=== PATIENT | female | born 1950 | race Caucasian/White ===

== ENCOUNTER 2019-06-08 17:25 | Emergency (ER) | payer MEDICARE, OTHER ==
[~2019-06-08] VITALS: Ht 167.6 cm; Wt 70.8 kg
[~2019-06-08 17:25] MED LIST: ALLOPURINOL 10100 M1 PO; AMBIEN 5 MG TABL5 M1 PO; EFFEXOR 5050 MG/1 T1 PO; GABAPENTIN 100100 MG PO; KEFLEX500 MG PO; MAXZIDE-25 MG1 EACH PO; PREDNISONE 10 M10 M1 PO; PREMARIN0.3 MG PO; PRILOSEC 20 MG20 MG PO; VITAMIN D1000 UNI1 PO; ZOCOR20 MG PO
[2019-06-08 17:58] LABS: URINE BILIRUBIN NEGATIVE (Negative); URINE BLOOD NEGATIVE (Negative); URINE CLARITY CLEAR; URINE COLOR YELLOW; URINE GLUCOSE-RANDOM NEGATIVE (Negative); URINE KETONES NEGATIVE (Negative); URINE LEUKOCYTES-REFLEX NEGATIVE (Negative); URINE NITRITE-REFLEX NEGATIVE (Negative); URINE PROTEIN 1+ (Negative); URINE SPECIFIC GRAVITY >= 1.030 (1.005-1.030); URINE UROBILINOGEN 0.2 E.U./dl (0.2-1.0)
[2019-06-08 18:33] LABS: ABSOLUTE BASOPHILS 0.1 thou/uL (0.0-0.2); ABSOLUTE EOSINOPHILS 0.1 thou/uL (0.0-0.7); ABSOLUTE LYMPHOCYTES 1.7 thou/uL (0.8-5.3); ABSOLUTE MONOCYTES 0.8 thou/uL (0.0-1.2); ABSOLUTE NEUTROPHILS 7.3 thou/uL (1.6-8.1); BASOPHILS 0.6 %; EOSINOPHILS 0.6 %; HEMATOCRIT 39.6 % (37.0-47.0); HEMOGLOBIN 13.3 gm/dL (12.0-15.0); LYMPHOCYTES 16.9 %; MCH 29.7 pg (26.0-34.0); MCHC 33.7 g/dL (28.0-37.0); MCV 88.4 fL (80.0-100.0); MONOCYTES 7.7 %; MPV 8.4 fl. (7.2-11.1); NUCLEATED RBCS 0 /100WBC; PLATELET COUNT* 344 thou/uL (150-400); POLYS 74.2 %; RBC 4.48 mil/uL (4.20-5.00); RDW-CV 14.7 % (10.5-14.5); WBC 9.8 thou/uL (4.0-11.0)
[2019-06-08 18:46] LABS: CALCIUM 9.3 mg/dL (8.5-10.1); CREATININE 1.2 mg/dL (0.6-1.3); POTASSIUM 3.4 mmol/L (3.5-5.1)
[2019-06-08 18:50] LABS: ALBUMIN 3.2 g/dL (3.4-5.0); TOTAL BILIRUBIN 0.5 mg/dL (<0.1-1.0); TOTAL PROTEIN 7.8 g/dL (6.4-8.2)
[2019-06-08] MEDS ORDERED: FLAGYL500 M1 PO (20:20)
[2019-06-08] MEDS ORDERED: CIPRO500 MG PO (20:20)
[2019-06-08] MEDS ORDERED: NORCO 5-325 TA1 EAC1 PO (20:20)
[2019-06-08] MEDS ORDERED: ONDANSETRON HCL4 M2 PO (20:20)
[2019-06-08 20:32] VITALS: BP 187/80
--- NOTE | 2019-06-09 10:29 | EKG ---
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1950 Requested By: Vanesa Maldonado Order Number: [id number] MD: Jovanni Flores Measurements Intervals [place] Rate: 75 P: 46 MT: 168 QRS: -17 QRSD: 91 T: 61 QT: 447 QTc: 500 Interpretive Statements Sinus rhythm Probable left atrial enlargement Probable left ventricular hypertrophy Borderline prolonged QT interval No previous ECG available for comparison Electronically Signed On 06-09-2019 10:28:57 CDT by Jovanni Flores [email or web address] <ELECTRONICALLY SIGNED> By: Jovanni Flores MD, [facility] 06/09/19 1028 1829 182 Jovanni Flores MD, FACC /EPI
== END 2019-06-08 20:33 | disposition home or self-care (01) ==
LOC: M.ERS 17:25
PROVIDERS: Nurse Practitioner Family
DX: K57.32 Diverticulitis of large intestine without perforation or abscess without bleeding (principal); E78.5 Hyperlipidemia, unspecified; F41.9 Anxiety disorder, unspecified; Z90.710 Acquired absence of both cervix and uterus; Z90.49 Acquired absence of other specified parts of digestive tract; Z98.890 Other specified postprocedural states; Z90.721 Acquired absence of ovaries, unilateral; Z88.5 Allergy status to narcotic agent; Z91.012 Allergy to eggs

== ENCOUNTER → 2019-08-04 | Outpatient (CLI) | payer MEDICARE, OTHER ==
[~2019-08-04] MED LIST changes: +CIPRO500 MG PO; +FLAGYL500 M1 PO; +NORCO 5-325 TA1 EAC1 PO; +ONDANSETRON HCL4 M2 PO
== END ==
LOC: M.ULTRA 08:00
DX: Z12.31 Encounter for screening mammogram for malignant neoplasm of breast (principal); N28.1 Cyst of kidney, acquired; R11.10 Vomiting, unspecified

== ENCOUNTER → 2020-10-13 | Outpatient (CLI) | payer MEDICARE, OTHER ==
[2020-10-13 09:31] LABS: ALBUMIN 3.4 g/dL (3.4-5.0); CALCIUM 9.1 mg/dL (8.5-10.1); CREATININE 1.8 mg/dL (0.6-1.3); POTASSIUM 4.9 mmol/L (3.5-5.1); TOTAL BILIRUBIN 0.4 mg/dL (<0.1-1.0); TOTAL PROTEIN 7.6 g/dL (6.4-8.2)
== END ==
LOC: M.RAD 06-06 14:20
PROVIDERS: ATTEND Anesthesiology
DX: N18.9 Chronic kidney disease, unspecified (principal)

== ENCOUNTER → 2020-10-30 | Outpatient (CLI) | payer MEDICARE, OTHER | LOC: M.RAD 10-17 15:12 | PROVIDERS: ATTEND Family Medicine | DX: Z12.31 Encounter for screening mammogram for malignant neoplasm of breast (principal); Z13.820 Encounter for screening for osteoporosis; M81.0 Age-related osteoporosis without current pathological fracture ==

== ENCOUNTER → 2020-10-31 | Outpatient (CLI) | payer MEDICARE, OTHER | LOC: M.RAD 09:35 | PROVIDERS: ATTEND Internal Medicine Gastroenterology | DX: K21.9 Gastro-esophageal reflux disease without esophagitis (principal) ==

== ENCOUNTER → 2020-12-20 | Outpatient (CLI) | payer MEDICARE, OTHER | LOC: M.NUC 07:10 | PROVIDERS: ATTEND Nurse Practitioner Adult Health | DX: R10.9 Unspecified abdominal pain (principal); R11.0 Nausea ==

== ENCOUNTER 2021-03-17 21:43 | Emergency (ER) | payer MEDICARE, OTHER ==
[~2021-03-17] VITALS: Ht 165.1 cm; Wt 70.3 kg
[2021-03-17] MEDS ORDERED: PEPCID20 MG PO (22:01)
[2021-03-17] MEDS ORDERED: ROSUVASTATIN CA10 MG PO (22:01)
[2021-03-17] MEDS ORDERED: BENICAR20 MG PO (22:02)
[2021-03-17] MEDS ORDERED: NORVASC5 M1 PO (22:02)
[2021-03-17 22:49] LABS: URINE BILIRUBIN NEGATIVE (Negative); URINE BLOOD TRACE (Negative); URINE CLARITY CLEAR; URINE COLOR YELLOW; URINE GLUCOSE-RANDOM NEGATIVE (Negative); URINE KETONES NEGATIVE (Negative); URINE LEUKOCYTES-REFLEX NEGATIVE (Negative); URINE NITRITE-REFLEX NEGATIVE (Negative); URINE PROTEIN TRACE (Negative); URINE SPECIFIC GRAVITY >= 1.030 (1.005-1.030); URINE UROBILINOGEN 0.2 E.U./dl (0.2-1.0)
[2021-03-17 23:03] LABS: ABSOLUTE BASOPHILS 0.1 thou/uL (0.0-0.2); ABSOLUTE EOSINOPHILS 0.1 thou/uL (0.0-0.7); ABSOLUTE LYMPHOCYTES 2.3 thou/uL (0.8-5.3); ABSOLUTE MONOCYTES 0.8 thou/uL (0.0-1.2); ABSOLUTE NEUTROPHILS 7.7 thou/uL (1.6-8.1); BASOPHILS 0.6 %; EOSINOPHILS 0.5 %; HEMATOCRIT 39.5 % (37.0-47.0); LYMPHOCYTES 21.3 %; MCH 30.1 pg (26.0-34.0); MONOCYTES 7.1 %; MPV 8.2 fl. (7.2-11.1); NUCLEATED RBCS 0 /100WBC; PLATELET COUNT* 396 thou/uL (150-400); POLYS 70.5 %; RBC 4.33 mil/uL (4.20-5.00); RDW-CV 13.5 % (10.5-14.5)
[2021-03-17 23:11] LABS: CALCIUM 9.6 mg/dL (8.5-10.1); POTASSIUM 4.2 mmol/L (3.5-5.1)
[2021-03-17 23:16] LABS: ALBUMIN 3.8 g/dL (3.4-5.0); TOTAL BILIRUBIN 0.3 mg/dL (<0.1-1.0); TOTAL PROTEIN 8.6 g/dL (6.4-8.2)
[2021-03-18] MEDS ORDERED: HYDROCODON-ACE1 EAC7 PO (01:42)
[2021-03-18] MEDS ORDERED: ZOFRAN ODT4 MG PO (01:42)
[2021-03-18 01:55] VITALS: BP 144/60
--- NOTE | 2021-03-18 12:33 | EKG ---
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1950 Requested By: Alia Knott Order Number: [id number] MD: Sony Ruiz Measurements Intervals [place] Rate: 95 P: 55 MS: 161 QRS: -20 QRSD: 83 T: 95 QT: 349 QTc: 439 Interpretive Statements Sinus rhythm Borderline left axis deviation Nonspecific T abnormalities, lateral leads Compared to ECG 06/08/2019 18:29:09 T-wave abnormality now present Electronically Signed On 03-18-2021 12:33:25 CDT by Sony Ruiz [email or web address] <ELECTRONICALLY SIGNED> By: Higinio Ruiz MD, [facility] 03/18/21 1233 01 01 Higinio Ruiz MD, [facility] /EPI
== END 2021-03-18 01:57 | disposition home or self-care (01) ==
LOC: M.ERS 21:43
PROVIDERS: Personal Emergency Response Attendant
DX: K80.10 Calculus of gallbladder with chronic cholecystitis without obstruction (principal); I10 Essential (primary) hypertension; E78.5 Hyperlipidemia, unspecified; Z88.5 Allergy status to narcotic agent; Z88.8 Allergy status to other drugs, medicaments and biological substances; Z91.012 Allergy to eggs; Z90.710 Acquired absence of both cervix and uterus; Z90.49 Acquired absence of other specified parts of digestive tract; Z90.89 Acquired absence of other organs; Z90.721 Acquired absence of ovaries, unilateral

== ENCOUNTER 2021-04-24 11:05 | Emergency (ER) | payer MEDICARE, OTHER ==
[~2021-04-24] VITALS: Ht 167.6 cm; Wt 71.2 kg
[~2021-04-24 11:05] MED LIST changes: -COMPRESSION TH1 EACH MISCELL
[2021-04-24] MEDS ORDERED: COMPRESSION TH1 EACH MISCELL (12:27)
[2021-04-24 12:51] VITALS: BP 124/68
== END 2021-04-24 12:51 | disposition home or self-care (01) ==
LOC: M.ERS 11:05
DX: R60.0 Localized edema (principal); I10 Essential (primary) hypertension; E78.5 Hyperlipidemia, unspecified; Z88.5 Allergy status to narcotic agent; Z91.012 Allergy to eggs; Z88.8 Allergy status to other drugs, medicaments and biological substances; Z90.710 Acquired absence of both cervix and uterus; Z90.49 Acquired absence of other specified parts of digestive tract; Z90.721 Acquired absence of ovaries, unilateral; Z90.89 Acquired absence of other organs

== ENCOUNTER → 2021-04-24 | Outpatient (CLI) | payer MEDICARE, OTHER ==
[~2021-04-24] MED LIST changes: +BENICAR20 MG PO; +COMPRESSION TH1 EACH MISCELL; +HYDROCODON-ACE1 EAC7 PO; +NORVASC5 M1 PO; +PEPCID20 MG PO; +ROSUVASTATIN CA10 MG PO; +ZOFRAN ODT4 MG PO
== END ==
LOC: M.NUC 07:23
PROVIDERS: ATTEND Family Medicine
DX: I51.89 Other ill-defined heart diseases (principal); R10.9 Unspecified abdominal pain; R11.2 Nausea with vomiting, unspecified

== ENCOUNTER → 2021-10-04 | Outpatient (CLI) | payer MEDICARE, OTHER ==
[~2021-10-04] MED LIST changes: +COMPRESSION TH1 EACH MISCELL
== END ==
LOC: M.RAD 13:30
PROVIDERS: ATTEND Family Medicine
DX: Z12.31 Encounter for screening mammogram for malignant neoplasm of breast (principal)